=== PATIENT | female | born 1970 | race Two or more races ===

== ENCOUNTER 2023-08-18 15:31 | Emergency (ER) | payer OTHER ==
[~2023-08-18] VITALS: Ht 165.1 cm; Wt 68.0 kg
[2023-08-18 16:18] LABS: Basophils # (auto) 0 10 ^3/uL (0-0.2); Basophils % (auto) 0.3 % (0.0-2.0); Eosinophils # (auto) 0.1 10 ^3/uL (0-0.8); Eosinophils % (auto) 1.5 % (0.0-7.0); Hematocrit 35.2 % (36.0-46.0); Hemoglobin 12.1 g/dL (12.2-16.2); Lymphocytes # (auto) 2.3 10 ^3/uL (0.4-5.4); Lymphocytes % (auto) 27.1 % (10.0-50.0); Mean Corpuscular Hemoglobin 28.9 pg (28.0-32.0); Mean Corpuscular Hgb Conc. 34.5 g/dL (32.0-36.0); Mean Corpuscular Volume 83.8 fL (80.0-100.0); Monocytes # (auto) 0.4 10 ^3/uL (0-1.3); Monocytes % (auto) 4.5 % (0.0-12.0); Neutrophils # (auto) 5.6 10 ^3/uL (1.6-8.6); Neutrophils % (auto) 66.6 % (37.0-80.0); Nucleated Red Blood Cells % 0.1 %; Red Cell Distribution Width 12.8 % (11.8-14.3); White Blood Cell 8.3 10^3/uL (4.4-10.8)
[2023-08-18 16:42] LABS: Alanine Aminotransferase 23 U/L (7-40); Albumin 4.1 g/dL (3.2-4.8); Alkaline Phosphatase 75 U/L (46-116); Anion Gap 7 (5-15); Aspartate Aminotransferase 17 U/L (13-40); BUN/Creatinine Ratio 20.6 (10.0-20.0); Bilirubin, Total 0.7 mg/dL (0.2-1.0); Blood Urea Nitrogen 14 mg/dL (9-23); Carbon Dioxide 23 mmol/L (20-30); Chloride 110 mmol/L (98-107); Glucose 182 mg/dL (74-106); Lipase 19 U/L (12-53); Sodium 140 mmol/L (136-145); Total Protein 6.3 g/dL (5.7-8.2)
[2023-08-18] MEDS: METOCLOPRAMIDE HCL 5MG/ml INJ 2ml VIAL IM ONE (20:56)
[2023-08-18] MEDS: MECLIZINE HCL 25 MG TAB PO ONE (20:56)
[2023-08-18 21:00] VITALS: BP 139/85; PULSE 91; RESP 18; TEMP 97.5; O2SAT 100
[2023-08-18 21:38] LABS: Urine Bacteria FEW /hpf (None Seen); Urine Blood Negative /uL (Negative); Urine Clarity Turbid (Clear); Urine Color Light-Yellow (Yellow); Urine Mucus FEW (None Seen); Urine Protein, UAD Negative (Negative); Urine Specific Gravity 1.017 (1.001-1.035); Urine Urobilinogen Normal (Negative); Urine WBC 25 /hpf (0 - 5)
[2023-08-18] MEDS ORDERED: MECL1TAB42 PO (21:56)
[2023-08-18] MEDS ORDERED: NITR-87 PO (21:56)
[2023-08-18] MEDS ORDERED: METO-281 PO (21:56)
[2023-08-18] MEDS ORDERED: NITROFURANTOIN 100 mg CAP PO ONE (22:00)
== END 2023-08-18 23:25 | disposition left against medical advice (07) ==
LOC: ER 15:31 → EDBD 15:31 → ER 23:25
DX: N39.0 Urinary tract infection, site not specified (principal)
CPT/HCPCS: 36415; 70450; 80053; 81001; 83690; 84484; 85025; 96372; 99285; J2765; J8597